=== PATIENT | female | born 2000 | race Two or more races ===

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

== ENCOUNTER 2022-10-31 16:21 | Emergency (ER) | payer OTHER ==
[~2022-10-31] VITALS: Ht 162.6 cm; Wt 58.1 kg
[~2022-10-31 16:21] MED LIST: KETO10TA2 PO
== END 2022-10-31 21:26 | disposition home or self-care (01) ==
LOC: ER 16:21 → EMR PED 16:23
DX: M54.50 Low back pain, unspecified (principal); M54.2 Cervicalgia

== ENCOUNTER 2022-11-13 09:55 | Outpatient (CLI) | payer OTHER | END 2022-11-13 10:06 | disposition home or self-care (01) | LOC: MRI 09:55 | PROVIDERS: ATTEND Specialist | DX: M51.26 Other intervertebral disc displacement, lumbar region (principal); M54.17 Radiculopathy, lumbosacral region; M51.36 Other intervertebral disc degeneration, lumbar region | CPT/HCPCS: 72148 ==